=== PATIENT | male | born 1955 | race Caucasian/White ===

== ENCOUNTER 2018-07-28 07:47 | Day surgery (SDC) | payer OTHER ==
[2018-07-28] MEDS ORDERED: LIDOCAINE 2% (SDV) 5 ML INJ (10:21)
[2018-07-28] MEDS ORDERED: PROPOFOL 60 ML (10:21)
[2018-07-28] MEDS ORDERED: EPHEDrine SULFATE 50 MG/5 ML SYG IV (10:30)
[2018-07-28] MEDS ORDERED: ONDANSETRON 4 MG INJ IV (10:30)
[2018-07-28] MEDS ORDERED: LABETALOL HCL 20MG INJ IV (10:30)
[2018-07-28] MEDS ORDERED: ALBUTEROL 0.083% (NEB) 2.5 MG/3 ML AMP HHN (10:30)
[2018-07-28] MEDS ORDERED: hydrALAzine 20 MG INJ IV (10:30)
[2018-07-28] MEDS ORDERED: FENTAnyl 50 MCG/ML VIAL IV (10:30)
== END 2018-07-28 12:24 | disposition home or self-care (01) ==
LOC: GIL 07:47
DX: R19.4 Change in bowel habit (principal); K64.8 Other hemorrhoids; D12.5 Benign neoplasm of sigmoid colon; E11.9 Type 2 diabetes mellitus without complications; Z79.82 Long term (current) use of aspirin; Z79.84 Long term (current) use of oral hypoglycemic drugs
CPT/HCPCS: 45385; 88305